=== PATIENT | male | born 1955 | race Caucasian/White ===

== ENCOUNTER → 2021-05-04 | Day surgery (SDC) | payer MEDICARE, MEDICAID ==
[2021-04-28 16:10] LABS: BASOPHILS # (AUTO) 0.1 X10'3 (0-0.2); BASOPHILS % (AUTO) 0.7 % (0-1); EOSINOPHILS # (AUTO) 0.3 X10'3 (0-0.9); EOSINOPHILS % (AUTO) 3.1 % (0-6); LYMPHOCYTES # (AUTO) 2.3 X10'3 (1.1-4.8); LYMPHOCYTES % (AUTO) 24.2 % (21-51); MEAN CORPUSCULAR HEMOGLOBIN 29.4 PG (27.0-31.0); MEAN CORPUSCULAR HGB CONC 33.9 g/dL (33.0-36.5); MEAN CORPUSCULAR VOLUME 86.7 FL (78-98); MEAN PLATELET VOLUME 7.9 FL (7.4-10.4); MONOCYTES # (AUTO) 0.6 X10'3 (0-0.9); MONOCYTES % (AUTO) 6.7 % (2-12); NEUTROPHILS # (AUTO) 6.2 X10'3 (1.8-7.7); NEUTROPHILS % (AUTO) 65.3 % (42-75); PRE OP HEMATOCRIT 42.2 % (42.0-52.0); PRE OP HEMOGLOBIN 14.3 g/dL (14.0-17.9); PRE OP PLATELET COUNT 230 X10'3 (140-440); RED BLOOD COUNT 4.86 X10'6 (4.70-6.10); RED CELL DISTRIBUTION WIDTH 14.2 % (11.5-14.5)
[2021-04-28 16:51] LABS: CLARITY,URINE CLEAR (Clear); COLOR,URINE YELLOW (Yellow); GLUCOSE, URINE NEGATIVE (Neg); KETONES,URINE NEGATIVE (Neg); LEUKOCYTE ESTERASE ,URINE NEGATIVE (Neg); NITRITES, URINE NEGATIVE (Neg); OCCULT BLOOD,URINE NEGATIVE (Neg); PH,URINE 5.5 (4.8-8.0); PROTEIN,URINE NEGATIVE (Neg); UA COLLECTION TYPE NON-SPECIFIED; UROBILINOGEN,URINE 0.2 E.U/dL (0.2-1.0)
[2021-04-28 16:53] LABS: ALBUMIN 3.7 G/DL (3.4-5.0); ALBUMIN/GLOBULIN RATIO 1.2 (1.1-1.5); ALKALINE PHOSPHATASE 95 IU/L (46-116); BLOOD UREA NITROGEN 30 MG/DL (7-18); BUN/CREATININE RATIO 28.3 (5.4-32.0); CHLORIDE 107 MMOL/L (99-107); CREATININE 1.06 MG/DL (0.60-1.10); PRE OP ALT 45 U/L (30-65); PRE OP ANION GAP 11 (8-16); PRE OP AST 31 U/L (10-37); PRE OP BILIRUB, TOTAL 0.2 MG/DL (0.0-1.0); PRE OP GLUCOSE 83 MG/DL (70-104); PRE OP POTASSIUM 4.4 MMOL/L (3.4-5.1); PRE OP SODIUM 143 MMOL/L (135-145); TOTAL CARBON DIOXIDE 24.8 MMOL/L (24-32); TOTAL PROTEIN 6.9 G/DL (6.4-8.2); eGFR 70 ML/MIN
[~2021-05-04] VITALS: Ht 190.5 cm; Wt 115.2 kg
[2021-05-04] VITALS (12 sets, daily range): BP systolic 129–163; BP diastolic 58–102
[~2021-05-04] MED LIST: BUPIVAcaine/PF 2.5mg/ml (0.25%) 10ml vial ONE; CHLO25TA10 PO; DICL75TA5 PO; HYDROmorphone/PF 0.2 MG/ML SYRINGE IV PRN; LIDOcaine 2% (20mg/ml) 5ml vial ONE; LISI40TA13 PO; MELO-102 PO; OMEP40CA21 PO; acetaminophen 1,000mg/100ml IV 100 ML IV PRN; ceFAZolin inj. 3,000 MG in normal saline 100ml IV soln 100 ML IV ONE; dexamethasone sod phosphate 4mg/ml inj. ONE; famotidine 20mg tablet PO ONE; fentaNYL/PF 50MCG/1 ML 2ML syringe ONE; glycopyrrolate 0.2mg/ml inj ONE; hydrALAZINE 20mg/ml inj. IV PRN; labetalol 20mg/4ml (5mg/ml) syringe IV PRN; meperidine/PF 25mg/ml syringe IV PRN; midazolam 1 mg/ML 2ml injection ONE; morphine 2 MG/ML inj. syringe IV PRN; morphine 4 MG/ML inj SYRINge IV PRN; morphine 4 MG/ML inj SYRINge ONE; neostigmine methylsulfate 1 MG/ML 10ml vial ONE; ondansetron/PF 4mg/2ml inj IV PRN; ondansetron/PF 4mg/2ml inj ONE; proCHLORperazine 10 MG/2 ml inj IV PRN; propofol inj 20 ML IV ONE; ringers solution, lacted 1,000 ML IV SCH; rocuronium 10mg/ml inj IV ONE; sevoflurane 250ml liquid IH ONE
--- NOTE | 2021-05-04 12:56 | NUR ---
Received from OR via [facility], accompanied by Anesthesiologist DR COUCH and report given by Anesthesiolgist. PT HAS ORAL AIRWAY, PLACED ON O2 AND MONITOR, S/P BILAT ING HERNIA REPAIRS WITH MESH, 20G PIV RIGHT WRIST, F/C IN PLACE DRAINING CLEAR YELLOW, PT HAS 3 ABD ISLAND DRESSINGS COVERING LAP SITES, CDI, ABD SOFT, WILL CONT TO ASSESS.
--- NOTE | 2021-05-04 14:15 | NUR ---
ADMINISTERD 5MG OF LABETOLOL IVP AND 1GM IV TYLENOL. PT WAKING UP AND REQUESTIONG TO GO HOME. PT WILL GO HOME WITH OSIEL IN AND GO SEE DR YIP ON SATURDAY 05/06 FOR REMOVAL. CATHETER CARE INSTUCTIONS GIVEN WITH WIPES PT VERBALIZED UNDERSTANDING. WILL CONT TO ASSESS.
--- NOTE | 2021-05-04 14:45 | NUR ---
PT WANTING TO GO HOME, SITTING UP IN CHAIR GETTING DRESSED. DC'S PIV INTRACATH INTACT 2X2 AND COBAN APPLIED. PT TOLERATED WELL. DISCHARGE INSTRUCTIONS GIVEN AND READ TO PT, VERBALIZED UNDERSTANDING. [facility]. DISCHARGE INSTRUCTIONS REINFORCED WITH PT'S TRANSPORT. ALL VERBALIZED UNDERSTANDING.
== END | disposition home or self-care (01) ==
LOC: PAS 07:07
PROVIDERS: ATTEND Surgery
DX: K40.20 Bilateral inguinal hernia, without obstruction or gangrene, not specified as recurrent (principal); I10 Essential (primary) hypertension; K21.9 Gastro-esophageal reflux disease without esophagitis; G47.33 Obstructive sleep apnea (adult) (pediatric); F17.210 Nicotine dependence, cigarettes, uncomplicated; Z72.89 Other problems related to lifestyle; Z90.49 Acquired absence of other specified parts of digestive tract; Z98.890 Other specified postprocedural states; Z79.899 Other long term (current) drug therapy; Z20.822 Contact with and (suspected) exposure to COVID-19; Z86.19 Personal history of other infectious and parasitic diseases
CPT/HCPCS: 36415; 49650; 71046; 80053; 81003; 82948; 85025; 87635; 93005; C1758; C1781; C9803; J0131; J0690; J1100; J2250; J2270; J2405; J2704; J2710; J3010; J3490; J7030; J7120; Z7506; Z7508; Z7512; A4215; A4618

== ENCOUNTER 2021-06-06 12:49 | Outpatient (CLI) | payer MEDICARE, MEDICAID ==
[~2021-06-06 12:49] MED LIST changes: -BUPIVAcaine/PF 2.5mg/ml (0.25%) 10ml vial ONE; -HYDROmorphone/PF 0.2 MG/ML SYRINGE IV PRN; -LIDOcaine 2% (20mg/ml) 5ml vial ONE; -acetaminophen 1,000mg/100ml IV 100 ML IV PRN; -ceFAZolin inj. 3,000 MG in normal saline 100ml IV soln 100 ML IV ONE; -dexamethasone sod phosphate 4mg/ml inj. ONE; -famotidine 20mg tablet PO ONE; -fentaNYL/PF 50MCG/1 ML 2ML syringe ONE; -glycopyrrolate 0.2mg/ml inj ONE; -hydrALAZINE 20mg/ml inj. IV PRN; -labetalol 20mg/4ml (5mg/ml) syringe IV PRN; -meperidine/PF 25mg/ml syringe IV PRN; -midazolam 1 mg/ML 2ml injection ONE; -morphine 2 MG/ML inj. syringe IV PRN; -morphine 4 MG/ML inj SYRINge IV PRN; -morphine 4 MG/ML inj SYRINge ONE; -neostigmine methylsulfate 1 MG/ML 10ml vial ONE; -ondansetron/PF 4mg/2ml inj IV PRN; -ondansetron/PF 4mg/2ml inj ONE; -proCHLORperazine 10 MG/2 ml inj IV PRN; -propofol inj 20 ML IV ONE; -ringers solution, lacted 1,000 ML IV SCH; -rocuronium 10mg/ml inj IV ONE; -sevoflurane 250ml liquid IH ONE
== END 2021-06-06 23:59 | disposition home or self-care (01) ==
LOC: RAD 12:49
PROVIDERS: ATTEND Surgery
DX: R10.30 Lower abdominal pain, unspecified (principal)
CPT/HCPCS: 76882

== ENCOUNTER 2022-12-08 09:42 | Inpatient (IN) | payer MEDICARE, MEDICAID ==
[2022-12-06 12:24] LABS: BASOPHILS # (AUTO) 0.1 X10'3 (0-0.2); BASOPHILS % (AUTO) 1.2 % (0-1); EOSINOPHILS # (AUTO) 0.3 X10'3 (0-0.9); LYMPHOCYTES # (AUTO) 1.4 X10'3 (1.1-4.8); LYMPHOCYTES % (AUTO) 17.9 % (21-51); MEAN CORPUSCULAR HEMOGLOBIN 29.4 PG (27.0-31.0); MEAN CORPUSCULAR HGB CONC 33.7 g/dL (33.0-36.5); MEAN CORPUSCULAR VOLUME 87.2 FL (78-98); MEAN PLATELET VOLUME 7.3 FL (7.4-10.4); MONOCYTES # (AUTO) 0.4 X10'3 (0-0.9); MONOCYTES % (AUTO) 4.6 % (2-12); NEUTROPHILS # (AUTO) 5.7 X10'3 (1.8-7.7); NEUTROPHILS % (AUTO) 72.3 % (42-75); PRE OP HEMATOCRIT 36.2 % (42.0-52.0); PRE OP HEMOGLOBIN 12.2 g/dL (14.0-17.9); PRE OP PLATELET COUNT 283 X10'3 (140-440); PRE OP WHITE BLOOD COUNT 7.9 10'3 (4.8-10.8); RED BLOOD COUNT 4.15 X10'6 (4.70-6.10); RED CELL DISTRIBUTION WIDTH 13.8 % (11.5-14.5)
[2022-12-06 12:26] LABS: BILIRUBIN,URINE NEGATIVE (Neg); CLARITY,URINE CLEAR (Clear); COLOR,URINE YELLOW (Yellow); GLUCOSE, URINE NEGATIVE (Neg); KETONES,URINE NEGATIVE (Neg); LEUKOCYTE ESTERASE ,URINE NEGATIVE (Neg); NITRITES, URINE NEGATIVE (Neg); OCCULT BLOOD,URINE NEGATIVE (Neg); PROTEIN,URINE NEGATIVE (Neg); UA COLLECTION TYPE CLN CATCH MIDSTREAM; UROBILINOGEN,URINE 0.2 E.U/dL (0.2-1.0)
[2022-12-06 12:34] LABS: ALBUMIN 2.9 G/DL (3.4-5.0); ALBUMIN/GLOBULIN RATIO 0.7 (1.1-1.5); ALKALINE PHOSPHATASE 93 IU/L (46-116); BLOOD UREA NITROGEN 17 MG/DL (7-18); BUN/CREATININE RATIO 19.8 (10.0-20.0); CALCIUM 8.9 MG/DL (8.5-10.1); CHLORIDE 106 MMOL/L (99-107); CREATININE 0.86 MG/DL (0.60-1.10); PRE OP ALT 24 U/L (30-65); PRE OP ANION GAP 5 (8-16); PRE OP AST 20 U/L (10-37); PRE OP BILIRUB, TOTAL 0.2 MG/DL (0.0-1.0); PRE OP GLUCOSE 118 MG/DL (70-104); PRE OP SODIUM 139 MMOL/L (135-145); TOTAL PROTEIN 6.8 G/DL (6.4-8.2); eGFR 88 ML/MIN
[2022-12-08] VITALS (18 sets, daily range): BP systolic 94–164; BP diastolic 35–83; PULSE 65–80; RESP 12–19; TEMP 97.7–98; O2SAT 93–100
[~2022-12-08] VITALS: Ht 190.5 cm; Wt 115.2 kg
[~2022-12-08 09:42] MED LIST changes: -CHLO25TA10 PO; -DICL75TA5 PO; +HYDR-3972 PO; -MELO-102 PO; -OMEP40CA21 PO; +ZOLP10TA PO; +cefazolin 2gm/D5W 100mL 100 ML IV ONE; +famotidine 20mg tablet PO ONE; +ringers solution, lacted 1,000 ML IV SCH; +tranexamic acid inj. 1,000 MG in normal saline IV soln 100ML IV ONE
[2022-12-08 11:53] LABS: PRE OP PARTIAL THROMB. TIME 31 SECONDS (22-32); PROTHROMBIN TIME 10.5 SECONDS (9.0-12.0)
[2022-12-08] MEDS ORDERED: ondansetron/PF 4mg/2ml inj IV PRN ×2 (12:20→15:20)
[2022-12-08] MEDS ORDERED: diphenhydrAMINE 25mg capsule PO PRN (12:20)
[2022-12-08] MEDS ORDERED: naloxone 0.4 mg/ml inj IV PRN (12:20)
[2022-12-08] MEDS ORDERED: acetaminophen 325mg tablet PO PRN (12:20)
[2022-12-08] MEDS ORDERED: HYDROcodone/acetaminophen 10/325mg tab PO PRN (12:20)
--- NOTE | 2022-12-08 12:30 | NUR ---
PT DENIES DECREASED SENSATION TO LEFT ARM/HAND. PT RADIAL PULSE PALPABLE AND WNL, PT BATHED AND USED BACTROBAN OINTMENT PER JOINT PROTOCOL RECOMMENDATIONS FOR THE LAST COUPLE OF DAYS (SINCE HIS PRE-OP ON 12/06). Addendum: 12/08/22 at 1439 by Kezia Anderson RN Amended: Links added.
[2022-12-08] MEDS ORDERED: methylene blue (5mg/ml) 50mg/10ml ampul IV ONE (13:09)
[2022-12-08] MEDS ORDERED: vancomycin 1,000mg inj ONE (13:09)
[2022-12-08] MEDS ORDERED: VANCOMYCIN 1,500MG inj. 1,500 MG in normal saline 500ml IV soln 300 ML IV ONE (13:10)
[2022-12-08] MEDS ORDERED: fentaNYL /PF 50mcg/ml 5ml ampule ONE (13:22)
[2022-12-08] MEDS ORDERED: midazolam 1 mg/ML 2ml injection ONE (13:22)
[2022-12-08] MEDS ORDERED: sevoflurane 250ml liquid IH ONE (13:32)
[2022-12-08] MEDS ORDERED: LIDOcaine 1%/PF 5ML 10 MG/ML VIAL ONE (14:39)
[2022-12-08] MEDS ORDERED: propofol inj 20 ML IV ONE (14:39)
[2022-12-08] MEDS ORDERED: ROPIVAcaine 0.5% (5mg/ml) 30ml vial ONE (14:39)
[2022-12-08] MEDS ORDERED: ondansetron/PF 4mg/2ml inj ONE (14:39)
[2022-12-08] MEDS ORDERED: dexamethasone sod phosphate 4mg/ml inj. ONE (14:39)
[2022-12-08] MEDS ORDERED: morphine 4 MG/ML inj SYRINge IV PRN (15:20)
[2022-12-08] MEDS ORDERED: meperidine/PF 25mg/ml syringe IV PRN ×3 (15:20)
[2022-12-08] MEDS ORDERED: morphine 2 MG/ML inj. syringe IV PRN (15:20)
[2022-12-08] MEDS ORDERED: proCHLORperazine 10 MG/2 ml inj IV PRN (15:20)
[2022-12-08] MEDS ORDERED: ringers solution, lacted 1,000 ML IV SCH (15:20)
[2022-12-08] MEDS ORDERED: ePHEDrine 50MG/ML INJ. ONE (15:24)
[2022-12-08] MEDS ORDERED: phenylephrine 10mg/ml inj. -priapism dosing ONE (15:24)
--- NOTE | 2022-12-08 15:51 | NUR ---
Received from OR via [facility] , accompanied by Anesthesiologist CASSANDRA and report given by Anesthesiolgist. PATIENT WITH SLING ON AND DRESSING TO ANTERIOR SHOULDER IS CDI ISLAND DRESSING PRESENT. PATIENT WITH 20G PIV IN RIGHT UE RUNNING LR AT 100. DENIES PAIN. + RADIAL PULSE PRSENT TO LEFT UE. + CSM. DENIES PAIN AT THIS TIME. Addendum: 12/08/22 at 1607 by Timmy Triplett RN, RN Amended: Links added.
[2022-12-08] MEDS: potassium cl 20mEq in 1/2 NS 1,000 ML IV SCH (17:42)
--- NOTE | 2022-12-08 18:38 | NUR ---
Problems reprioritized. Patient report given, questions answered & plan of care reviewed with amy infante.
--- NOTE | 2022-12-08 19:57 | NUR ---
Patient in room ORTHO 4009. I have received report from BA and had the opportunity to ask questions and assume patient care.
[2022-12-08] MEDS: HYDROcodone/acetaminophen 10/325mg tab PO PRN (21:27)
[2022-12-08] MEDS: cefazolin 2gm/D5W 100mL 100 ML IV SCH (21:59)
[2022-12-09] MEDS: cefazolin 2gm/D5W 100mL 100 ML IV SCH
[2022-12-09 02:06] VITALS: BP 126/69; PULSE 79; RESP 17; TEMP 97.8; O2SAT 94
[2022-12-09] MEDS: potassium cl 20mEq in 1/2 NS 1,000 ML IV SCH (05:38)
[2022-12-09] MEDS ORDERED: cefazolin 2gm/D5W 100mL 100 ML IV SCH (05:45)
--- NOTE | 2022-12-09 05:49 | NUR ---
I agree with FALL INTERN physical assessment
--- NOTE | 2022-12-09 06:29 | NUR ---
Problems reprioritized. Patient report given, questions answered & plan of care reviewed with ROSA.
[2022-12-09 06:54] VITALS: BP 138/62; PULSE 84; RESP 17; TEMP 97.9; O2SAT 96
[2022-12-09 07:06] VITALS: RESP 17
[2022-12-09 07:17] LABS: BASOPHILS # (AUTO) 0.1 X10'3 (0-0.2); BASOPHILS % (AUTO) 0.8 % (0-1); EOSINOPHILS # (AUTO) 0.1 X10'3 (0-0.9); EOSINOPHILS % (AUTO) 0.6 % (0-6); HEMATOCRIT 36.4 % (42.0-52.0); HEMOGLOBIN 12.1 g/dl (14.0-17.9); LYMPHOCYTES # (AUTO) 1.3 X10'3 (1.1-4.8); LYMPHOCYTES % (AUTO) 13.1 % (21-51); MEAN CORPUSCULAR HEMOGLOBIN 29.2 PG (27.0-31.0); MEAN CORPUSCULAR HGB CONC 33.2 g/dL (33.0-36.5); MEAN PLATELET VOLUME 7.5 FL (7.4-10.4); MONOCYTES # (AUTO) 0.7 X10'3 (0-0.9); MONOCYTES % (AUTO) 7.3 % (2-12); NEUTROPHILS # (AUTO) 7.9 X10'3 (1.8-7.7); NEUTROPHILS % (AUTO) 78.2 % (42-75); PLATELET COUNT 300 X10'3 (140-440); RED BLOOD COUNT 4.13 X10'6 (4.70-6.10); WHITE BLOOD COUNT 10.1 X10'3 (4.5-11.0)
[2022-12-09 07:53] LABS: ANION GAP 9 (8-16); CHLORIDE 102 MMOL/L (99-107); POTASSIUM 4.5 MMOL/L (3.5-5.1); SODIUM 136 MMOL/L (135-145); TOTAL CARBON DIOXIDE 25.1 MMOL/L (24-32)
[2022-12-09] MEDS ORDERED: aspirin 325mg tablet PO SCH (08:30)
[2022-12-09] MEDS ORDERED: cefazolin 2gm/D5W 100mL 100 ML IV ONE (09:20)
[2022-12-09 10:00] VITALS: BP 129/69; PULSE 80; RESP 18; TEMP 97.4; O2SAT 96
[2022-12-09] MEDS: HYDROcodone/acetaminophen 10/325mg tab PO PRN (10:05)
[2022-12-09 10:51] VITALS: BP 129/69; PULSE 80; RESP 18; TEMP 97.4; O2SAT 96
[2022-12-09 11:05] VITALS: RESP 16
--- NOTE | 2022-12-09 11:06 | NUR ---
Per EMR pt POD #1 s/p revision reverse left TSA. Pt with active discharge orders in place. Written high protein education with ONS coupons and RD contact information mailed to patient's address found in EMR. Pt currently on a regular diet and eating well, documented with 100% PO intake. Will continue to follow and provide verbal education as able if pt does not discharge. Addendum: 12/09/22 at [address] Amended: Links added.
--- NOTE | 2022-12-09 13:19 | NUR ---
Patient has discharged. IV discontinued with canula intact. All education completed with verbal acknowledgement of understanding. Opportunity to ask questions was given without any needs. Patient has a ride from friend. All belongings were bagged and taken by patient. Patient dressed himself. Patient provided with cold packs on discharge. Patient A&Ox4 and appropriate. Addendum: 12/09/22 at 1326 by Michelle Manley RN Patient will call for his own appointment at the direction of Dr. Zapata. Dr. Zapata will be taking care of sending pain medications to pharmacy on file from his office.
--- NOTE | 2022-12-09 13:26 | NUR ---
Student documentation: I have reviewed all interventions, assessments performed and documented by Shelby ALVARADO from [facility] . Student Medication Administration: For all medication-passes in the time frame of 2751-4233, all medication were reviewed, dispensed, administered and documented per hospital policy by Shelby ALVARADO from [facility].
== END 2022-12-09 14:05 | disposition home or self-care (01) | DRG 483 ==
LOC: PAS IN 09:42 → ORTHO 4S 16:58
PROVIDERS: ADMIT Specialist; ATTEND Specialist
PROC: 0RRK00Z Replacement of Left Shoulder Joint with Reverse Ball and Socket Synthetic Substitute, Open Approach (ICD-10-PCS; 2022-12-08)
PROC: 0RPK0JZ Removal of Synthetic Substitute from Left Shoulder Joint, Open Approach (ICD-10-PCS; principal; 2022-12-08 13:32)
DX: T84.098A Other mechanical complication of other internal joint prosthesis, initial encounter (principal); F17.210 Nicotine dependence, cigarettes, uncomplicated; T84.038A Mechanical loosening of other internal prosthetic joint, initial encounter; I10 Essential (primary) hypertension; J44.9 Chronic obstructive pulmonary disease, unspecified; Y83.1 Surgical operation with implant of artificial internal device as the cause of abnormal reaction of the patient, or of later complication, without mention of misadventure at the time of the procedure; Y92.89 Other specified places as the place of occurrence of the external cause; Z86.14 Personal history of Methicillin resistant Staphylococcus aureus infection
CPT/HCPCS: 36415; 73030; 76000; 80051; 80053; 81003; 82948; 85025; 85610; 85730; 86870; 86885; 86900; 86901; 87081; 97116; 97161; 97530; G0378; J0690; J1100; J2175; J2250; J2370; J2405; J2704; J2795; J3010; J3370; J3480; J3490; J7040; J7120; Q9968

== ENCOUNTER 2023-10-09 22:30 | Emergency (ER) | payer MEDICARE, MEDICAID ==
[~2023-10-09] VITALS: Ht 190.5 cm; Wt 111.4 kg
[~2023-10-09 22:30] MED LIST changes: -cefazolin 2gm/D5W 100mL 100 ML IV ONE; -famotidine 20mg tablet PO ONE; -ringers solution, lacted 1,000 ML IV SCH; -tranexamic acid inj. 1,000 MG in normal saline IV soln 100ML IV ONE
[2023-10-09 22:39] VITALS: TEMP 98.6
[2023-10-09 23:09] LABS: BILIRUBIN,URINE NEGATIVE (Neg); CLARITY,URINE CLEAR (Clear); COLOR,URINE YELLOW (Yellow); GLUCOSE, URINE NEGATIVE (Neg); KETONES,URINE NEGATIVE (Neg); LEUKOCYTE ESTERASE ,URINE NEGATIVE (Neg); NITRITES, URINE NEGATIVE (Neg); OCCULT BLOOD,URINE NEGATIVE (Neg); PH,URINE 5.5 (4.8-8.0); PROTEIN,URINE NEGATIVE (Neg); UROBILINOGEN,URINE 0.2 E.U/dL (0.2-1.0)
[2023-10-09 23:27] LABS: UA COLLECTION TYPE CLN CATCH MIDSTREAM
[2023-10-10 02:28] LABS: BASOPHILS # (AUTO) 0.1 X10'3 (0-0.2); BASOPHILS % (AUTO) 1.1 % (0-1); EOSINOPHILS # (AUTO) 0.3 X10'3 (0-0.9); HEMOGLOBIN 13.3 g/dl (14.0-17.9); LYMPHOCYTES # (AUTO) 2.2 X10'3 (1.1-4.8); MEAN CORPUSCULAR HEMOGLOBIN 29.3 PG (27.0-31.0); MEAN PLATELET VOLUME 7.7 FL (7.4-10.4); MONOCYTES # (AUTO) 0.5 X10'3 (0-0.9); RED BLOOD COUNT 4.54 X10'6 (4.70-6.10); RED CELL DISTRIBUTION WIDTH 14.3 % (11.5-14.5)
[2023-10-10 02:31] LABS: EOSINOPHILS % (AUTO) 3.5 % (0-6); HEMATOCRIT 40.1 % (42.0-52.0); LYMPHOCYTES % (AUTO) 23.2 % (21-51); MEAN CORPUSCULAR HGB CONC 33.2 g/dL (33.0-36.5); MEAN CORPUSCULAR VOLUME 88.3 FL (78-98); MONOCYTES % (AUTO) 5.2 % (2-12); NEUTROPHILS # (AUTO) 6.3 X10'3 (1.8-7.7); PLATELET COUNT 188 X10'3 (140-440); WHITE BLOOD COUNT 9.4 X10'3 (4.5-11.0)
[2023-10-10 02:40] LABS: ALBUMIN 3.3 G/DL (3.4-5.0); ANION GAP 7 (8-16); ASPARTATE AMINO TRANSFERASE 27 U/L (10-37); BLOOD UREA NITROGEN 27 MG/DL (7-18); BUN/CREATININE RATIO 22.9 (10.0-20.0); CALCIUM 8.9 MG/DL (8.5-10.1); CHLORIDE 107 MMOL/L (99-107); CREATININE 1.18 MG/DL (0.60-1.10); GLUCOSE 150 MG/DL (70-104); SODIUM 141 MMOL/L (135-145); TOTAL CARBON DIOXIDE 27.3 MMOL/L (24-32); eCRCL 71 ML/MIN; eGFR 61 ML/MIN
[2023-10-10] MEDS ORDERED: iohexol 300mg/ml 100ml inj. ONE (02:42)
[2023-10-10 02:54] LABS: ALANINE AMINOTRANSFERASE 34 U/L (12-78); ALKALINE PHOSPHATASE 85 IU/L (46-116); BILIRUBIN,TOTAL 0.3 MG/DL (0.1-1.0); TOTAL PROTEIN 6.7 G/DL (6.4-8.2)
[2023-10-10 03:02] LABS: POTASSIUM 3.1 MMOL/L (3.5-5.1)
[2023-10-10 04:45] VITALS: BP 121/77; PULSE 93; RESP 14; O2SAT 97
== END 2023-10-10 05:05 | disposition home or self-care (01) ==
LOC: ER 22:30
DX: K59.00 Constipation, unspecified (principal); F17.200 Nicotine dependence, unspecified, uncomplicated; Z79.899 Other long term (current) drug therapy
CPT/HCPCS: 36415; 74177; 80053; 81003; 85025; 99285; Q9967